=== PATIENT | female | born 1995 | race African-American/Black ===

== ENCOUNTER 2018-02-22 19:32 | Observation (INO) | payer SELFPAY ==
[~2018-02-22] VITALS: Ht 175.3 cm; Wt 146.4 kg
[2018-02-22 19:57] LABS: BASO % 0.4 % (0.0-2.0); EOS # 0.1 (0.0-0.7); EOS % 1.5 % (0-4.0); GRAN # 2.2 (1.4-6.5); GRAN % 42.2 % (42.2-75.2); HEMATOCRIT 37.9 % (37.0-47.0); HEMOGLOBIN 12.3 g/dl (12.5-16.0); LYMPH # 2.2 (1.2-3.4); LYMPH % 43.1 % (20.0-51.0); MEAN CELL VOLUME 87 fl (80.0-100.0); MEAN CORPUSCULAR HEMOGLOBIN 28 pg (27.0-31.0); MEAN CORPUSCULAR HGB CONC 33 g/dl (33.0-37.0); MEAN PLATELET VOLUME 10.5 fl (7.4-10.4); MONO # 0.6 (0.1-0.6); MONO % 12.4 % (1.7-9.3); PLATELET COUNT 221 K/mm3 (130-400); RED BLOOD COUNT 4.34 M/mm3 (4.10-5.30); REDCELL DISTRIBUTION WIDTH-CV 12.5 % (11.5-14.5)
[2018-02-22 20:07] LABS: BILIRUBIN,TOTAL 0.5 mg/dL (0.0-1.0); CALCIUM 9.2 mg/dL (8.4-10.2); CREATININE, serum 0.8 mg/dL (0.52-1.25); POTASSIUM 3.8 mmol/L (3.4-5.0); TOTAL PROTEIN 7.8 gm/dL (6.4-8.2)
[2018-02-22 20:18] LABS: TROPONIN-I 0.032 ng/mL (0.000-0.034)
[2018-02-22 23:04] LABS: TRICYCLIC ANTIDEPRESS URINE NEGATIVE
[2018-02-23 00:05] VITALS: BP 99/72; PULSE 75; TEMP 98.1
[2018-02-23 04:45] VITALS: BP 119/45; PULSE 78; TEMP 97.9
[2018-02-23 05:06] LABS: BASO % 0.3 % (0.0-2.0); EOS % 0.6 % (0-4.0); GRAN # 3.9 (1.4-6.5); GRAN % 60.9 % (42.2-75.2); HEMOGLOBIN 11.4 g/dl (12.5-16.0); LYMPH # 1.8 (1.2-3.4); LYMPH % 28.3 % (20.0-51.0); MEAN CELL VOLUME 87 fl (80.0-100.0); MEAN CORPUSCULAR HEMOGLOBIN 28 pg (27.0-31.0); MEAN CORPUSCULAR HGB CONC 32 g/dl (33.0-37.0); MEAN PLATELET VOLUME 10.7 fl (7.4-10.4); MONO # 0.6 (0.1-0.6); MONO % 9.6 % (1.7-9.3); PLATELET COUNT 215 K/mm3 (130-400); RED BLOOD COUNT 4.04 M/mm3 (4.10-5.30); REDCELL DISTRIBUTION WIDTH-CV 12.6 % (11.5-14.5)
[2018-02-23 05:08] LABS: HEMATOCRIT 35.2 % (37.0-47.0)
[2018-02-23 05:16] LABS: CALCIUM 9.2 mg/dL (8.4-10.2); CHOLESTEROL RISK RATIO 3.7; CREATININE, serum 0.79 mg/dL (0.52-1.25); POTASSIUM 3.9 mmol/L (3.4-5.0)
[2018-02-23 05:26] LABS: TROPONIN-I 6 HR POST INITIAL 0.031 ng/mL (0.000-0.034)
[2018-02-23 09:02] VITALS: BP 113/31; PULSE 63; TEMP 98.1
[2018-02-23 12:19] VITALS: BP 102/41; PULSE 75; TEMP 98.3
== END 2018-02-23 15:45 | disposition home or self-care (01) ==
LOC: COL.ER 19:32 → MEDICAL 22:50
PROVIDERS: Emergency Medicine; Nurse Practitioner
DX: I49.9 Cardiac arrhythmia, unspecified (principal); E66.9 Obesity, unspecified; Z83.3 Family history of diabetes mellitus
CPT/HCPCS: J1650; Q9967